=== PATIENT | female | born 1945 | race Caucasian/White ===

== ENCOUNTER 2018-03-11 07:04 | Emergency (ER) | payer OTHER ==
[2018-03-11 07:12] VITALS: BP 105/72; PULSE 95; TEMP 98.1; BMI 28.3
[2018-03-11] MEDS ORDERED: ACETAMINOPHEN 325 MG TABLET (FP) PO ONE ×2 (07:32→07:40)
[2018-03-11] MEDS ORDERED: LIDOCAINE 5% TOPICAL PATCH TP ONE (07:32)
[2018-03-11] MEDS ORDERED: IBUPROFEN 600 MG TABLET (FP) PO ONE ×2 (07:32→07:39)
[2018-03-11] MEDS ORDERED: ACETAMINOPHEN 500 MG TABLET (FP) ONE (07:39)
--- NOTE | 2018-03-11 07:42 | PDOC ---
History of Present Illness - General Chief Complaint: Pain, Acute Stated Complaint: INJURY TO LOWER BACK YESTERDAY Time Seen by Provider: 03/11/18 07:06 History Source: Patient Exam Limitations: No Limitations - History of Present Illness Initial Comments: 03/11/18 07:48 [place] 72 YOF with left hip arthritis awaiting surgery presenting with atraumatic lumbar back pain x 3 days. no falls or trauma. admits to twisting in a certain position when pain started. worse with lying flat and supine and initially getting up from sitting position, improved with ambulation and activity. no weakness or paresthesias. no urinary retention or incontinence. no f/c/ IVDU or back procedures. able to ambulate. went to urgent care clinic over the weekend, given flexeril w/o relief which she has taken three times a day. however, has not tried OTC pain meds or topical patches. 03/11/18 07:56 Past History - Past Medical History Allergies/Adverse Reactions: Allergies Allergy/AdvReac Type Severity Reaction Status Date / Time No Known Allergies Allergy Verified 03/11/18 07:05 Home Medications: Ambulatory Orders Multivitamins [Multivit ([facility] Form[facility])] 1 tab PO DAILY 03/12/16 Lidocaine 5% Patch [Lidoderm Patch -] 1 patch TP DAILY #7 patch 03/11/18 COPD: No Other medical history: DENIES - Suicide/Smoking/Psychosocial Hx Smoking History: Never smoked Have you smoked in the past 12 months: No Information on smoking cessation initiated: No Hx Alcohol Use: Yes (WITH DINNER, WINE) Drug/Substance Use Hx: No Substance Use Type: None Review of Systems - Review of Systems Able to Perform ROS?: Yes Comments:: 03/11/18 07:52 Constitutional: no fevers or chills. HEENT: no headache or dizziness. Abdomen: no abdominal pain : no urinary incontinence. MUSCULOSKELETAL: No joint pain and swelling. +back pain SKIN: no redness or skin changes, no discharge, no rash. Hematologic: no easy bruising/bleeding. NEUROLOGIC: No weakness, numbness or tingling. All other systems reviewed and negative, or as documented in HPI. *Physical Exam - Vital Signs Last Vital Signs Temp Pulse Resp BP Pulse Ox 98.1 F 95 H 16 105/72 98 03/11/18 07:06 03/11/18 07:06 03/11/18 07:06 03/11/18 07:06 03/11/18 07:06 - Physical Exam Comments: 03/11/18 07:51 General: NAD, well appearing Vascular: 2+ DP pulses symmetric and equal. Abdomen: nondistended, nontender. Back: +lower lumbar, right paravertebral tenderness. no stepoffs, FROM Focused MSK/Neuro Exam notable for soft compartments, Cap refill <2 sec. 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 Plantar flexion and dorsiflexion 5/5. FROM. Sensation grossly intact to light touch. No calf tenderness. Neg SLR bilaterally. no left hip/pelvic tenderness, with FROM in all extrem Skin: color normal color, warm and well perfused. 03/11/18 07:55 ED Treatment Course - RADIOLOGY Radiology Studies Ordered: Category Date Time Status SPINE-LUMBAR SACRAL [RAD] Stat Radiology 03/11/18 07:31 Ordered - Medications Given in the ED: ED Medications Discontinued Medications Generic Name Dose Route Start Last Admin Trade Name Fadyq PRN Reason Stop Dose Admin Acetaminophen 975 mg 03/11/18 07:32 03/11/18 07:41 Tylenol - PO 03/11/18 07:33 Not Given ONCE ONE Acetaminophen 1,000 mg 03/11/18 07:40 03/11/18 07:41 Tylenol - PO 03/11/18 07:41 1,000 mg ONCE ONE Administration Ibuprofen 600 mg 03/11/18 07:32 03/11/18 07:41 Motrin - PO 03/11/18 07:33 600 mg ONCE ONE Administration Medical Decision Making - Medical Decision Making 03/11/18 07:54 72 YOF with atraumatic back pain w/o neuro changes, able to walk. vitals wnl, HR in 90s likely 2/2 pain. DDx back pain: back strain, lumbago, spinal stenosis. Muscle spasm. Lumbar radiculopathy. Clinically doubt based on exam and clinical history: cord compression or cauda equina, with low suspicion and no red flag sx such as fevers, IVDU, lumbar procedures, urinary/stool incontinence/retention, neurologic deficits or changes. ED course: given motrin/tylenol for pain, lidoderm patch. XR lumbar sacral region: neg for fx, spondylolisthesis with spinal canal stenosis and facet joint arthropathy present in lumbar region, but no compression fx or deformity. able to ambulate reassurance provided, information and followup with orthopedist and primary doctor for her left hip surgery, no acute sx related to her hip arthritis/since September 2017. has surgery coming up in March 2018. - with pain relief, able to ambulate, ROM improved and no neuro/msk deficits will discharge with topical lidoderm, education on use of NSAID/tylenol As needed for pain, flexeril as adjuvant for muscle spasms. topical lidoderm PRN for pain control as well. f/u orthopedist for management of back pain/hip arthritis. return precautions discussed. pt agrees with impression and plan, questions answered. 03/11/18 11:00 03/11/18 14:01 *DC/Admit/Observation/Transfer Diagnosis at time of Disposition: Back pain, lumbosacral - Discharge Dispostion Disposition: HOME Condition at time of disposition: Stable Decision to Admit order: No - Prescriptions Prescriptions: Lidocaine 5% Patch [Lidoderm Patch -] 1 patch TP DAILY #7 patch - Referrals Referrals: Jani Chávez V [Primary Care Provider] - - Patient Instructions Printed Discharge Instructions: DI for Low Back Pain, DI for Back Spasm, DI for Back Strain or Sprain Additional Instructions: you may take tylenol and or motrin for pain. topical lidoderm patch for your back as well flexeril is a muscle relaxant that you can use additionally follow up with your doctor there appears to be degenerative changes on your X ray but no compression fracture or other traumatic injuries or bony defects. you should continue with physical activity and walking as tolerated, activity is good for your back, range of motion exercises as tolerated. - Post Discharge Activity
[2018-03-11] MEDS ORDERED: LIDOCAINE PATCH REMOVAL MC SCH (22:00)
== END 2018-03-11 11:05 | disposition home or self-care (01) ==
LOC: FER 07:04
DX: M54.5 Low back pain (principal)
CPT/HCPCS: 72100-TC-FY; 99281-25

== ENCOUNTER 2018-04-29 13:39 | Emergency (ER) | payer OTHER ==
[2018-04-29 14:08] VITALS: BP 155/86; PULSE 88; TEMP 97.7; BMI 28.3
--- NOTE | 2018-04-29 14:19 | PDOC ---
History of Present Illness - History of Present Illness Initial Comments: 04/29/18 14:36 The patient is a 73 year old female with past medical history of hypertension and GERD, s/p left hip replacement 6 days ago was brought in by her Orthopedic surgeon for lower extremity swelling that began this morning. Patient reports yesterday she was ambulating the most shes had since her surgery and this morning woke up with swelling of her left lower extremity without any accompanied calf pain, shortness of breath, or palpitations. She denies any associated chest pain. Denies any nausea, vomiting, diarrhea, fevers or chills. <Joy Richter - Last Filed: 04/29/18 14:36> - General History Source: Patient Exam Limitations: No Limitations <Bartolo Canales - Last Filed: 04/29/18 15:41> - General Chief Complaint: Pain Stated Complaint: LEFT LEG SWELLING Time Seen by Provider: 04/29/18 13:50 Past History <Joy Richter - Last Filed: 04/29/18 14:36> - Past Medical History COPD: No - Suicide/Smoking/Psychosocial Hx Smoking History: Never smoked Have you smoked in the past 12 months: No Hx Alcohol Use: Yes (OCCASIONAL) Drug/Substance Use Hx: No Substance Use Type: None <Bartolo Canales - Last Filed: 04/29/18 15:41> - Past Medical History Allergies/Adverse Reactions: Allergies Allergy/AdvReac Type Severity Reaction Status Date / Time bee venom protein (honey bee) Allergy Severe Swelling Verified 04/29/18 13:51 nickel Allergy Unknown Verified 04/29/18 13:51 Home Medications: Ambulatory Orders Acetaminophen 500 mg PO BID 04/29/18 Aspirin [Aspirin EC] 81 mg PO DAILY 04/29/18 Celecoxib [Celebrex] 200 mg PO DAILY 04/29/18 Metoprolol Tartrate [Lopressor -] 25 mg PO DAILY 04/29/18 Pantoprazole Sodium [Protonix] 40 mg PO DAILY 04/29/18 Review of Systems - Review of Systems Able to Perform ROS?: Yes Comments:: 04/29/18 14:36 GENERAL/CONSTITUTIONAL: No fever or chills. No weakness. HEAD, EYES, EARS, NOSE AND THROAT: No change in vision. No ear pain or discharge. No sore throat. CARDIOVASCULAR: No chest pain or shortness of breath. RESPIRATORY: No cough, wheezing, or hemoptysis. GASTROINTESTINAL: No nausea, vomiting, diarrhea or constipation. GENITOURINARY: No dysuria, frequency, or change in urination. MUSCULOSKELETAL: (+) Left lower extremity swelling. No joint or muscle swelling or pain. No neck or back pain. SKIN: No rash NEUROLOGIC: No headache, vertigo, loss of consciousness, or change in strength/ sensation. ENDOCRINE: No increased thirst. No abnormal weight change. HEMATOLOGIC/LYMPHATIC: No anemia, easy bleeding, or history of blood clots. ALLERGIC/IMMUNOLOGIC: No hives or skin allergy. All Other Systems: Reviewed and Negative <Joy Richter - Last Filed: 04/29/18 14:36> *Physical Exam - Vital Signs Last Vital Signs Temp Pulse Resp BP Pulse Ox 97.7 F 88 16 155/86 100 04/29/18 13:40 04/29/18 13:40 04/29/18 13:40 04/29/18 13:40 04/29/18 13:40 - Physical Exam Comments: 04/29/18 14:37 GENERAL: Awake, alert, and fully oriented, in no acute distress HEAD: No signs of trauma NECK: Normal ROM, supple, no lymphadenopathy, JVD, or masses EXTREMITIES: (+) Mild trace pedal edema in LLE, 2 DP pulse, em sign negative , no tibial swelling, bandage on left hip is clean and dry, full ROM of left hip , knee, and ankle.Normal range of motion. No clubbing or cyanosis. No cords, erythema, or tenderness NEUROLOGICAL: Cranial nerves II through XII grossly intact. Normal speech, normal gait SKIN: Warm, Dry, normal turgor, no rashes <Joy Richter - Last Filed: 04/29/18 14:36> - Vital Signs Last Vital Signs Temp Pulse Resp BP Pulse Ox 97.7 F 88 16 155/86 100 04/29/18 13:40 04/29/18 13:40 04/29/18 13:40 04/29/18 13:40 04/29/18 13:40 <Bartolo Canales - Last Filed: 04/29/18 15:41> ED Treatment Course - RADIOLOGY Radiology Studies Ordered: Category Date Time Status DUPLEX VASCUL US-1 LEG [US] Stat Ultrasound 04/29/18 14:09 Ordered <Bartolo Canales - Last Filed: 04/29/18 15:41> Medical Decision Making - Medical Decision Making 04/29/18 14:17 A portion of this note was documented by scribe services under my direction. I have reviewed the details of the note, within reason, and agree with the documentation with the following case summary and management plan written by me. Patient treated in the ED. Nursing notes are reviewed and incorporated into the medical decision-making. Vital signs reviewed. Vital Signs Temp Pulse Resp BP Pulse Ox 97.7 F 88 16 155/86 100 04/29/18 13:40 04/29/18 13:40 04/29/18 13:40 04/29/18 13:40 04/29/18 13:40 73-year-old female patient with no medical problems presents with left lower extremities swelling. The patient is postop day 6 from a left hip replacement. Reported on, located. This was at [facility]. Yesterday, the patient was walking around more than usual. This morning, woke up with some mild increased swelling of the left lower extremities. Denies any pain. No chest pain or short of breath. Patient was sent in by her orthopedist to rule out DVT. We'll obtain a duplex and reassess. 04/29/18 15:40 DVT studies negative. Pt will follow up with her orthopedist. I discussed the physical exam findings, ancillary test results and final diagnoses with the patient. I answered all of the patient's questions. The patient was satisfied with the care received and felt comfortable with the discharge plan and treatment plan. The patient will call their primary care physician within 24 hours to arrange follow-up and will return to the Emergency Department with any new, persistant or worsening symptoms. <Bartolo Canales - Last Filed: 04/29/18 15:41> *DC/Admit/Observation/Transfer - Attestations Scribe Attestion: 04/29/18 14:40 Documentation prepared by Joy Richter, acting as medical billing clerk for Bartolo Canales MD. <Joy Richter - Last Filed: 04/29/18 14:36> - Discharge Dispostion Decision to Admit order: No <Bartolo Canales - Last Filed: 04/29/18 15:41> Diagnosis at time of Disposition: Leg swelling - Discharge Dispostion Disposition: HOME Condition at time of disposition: Good - Patient Instructions Printed Discharge Instructions: DI for Hip Replacement Additional Instructions: Your ultrasound is negative for blood clots. Follow up with your orthopedist.
== END 2018-04-29 15:45 | disposition home or self-care (01) ==
LOC: FER 13:39
DX: M79.89 Other specified soft tissue disorders (principal); I10 Essential (primary) hypertension; K21.9 Gastro-esophageal reflux disease without esophagitis; Z96.642 Presence of left artificial hip joint
CPT/HCPCS: 93971-TC; 99282-25

== ENCOUNTER 2021-02-13 06:29 | Emergency (ER) | payer OTHER ==
[2021-02-13 06:37] VITALS: BP 147/90; PULSE 73; TEMP 97.9; BMI 28.5
[2021-02-13] MEDS ORDERED: ACETAMINOPHEN 500 MG TABLET (FP) PO ONE (07:20)
[2021-02-13] MEDS ORDERED: ACETAMINOPHEN 325 MG TABLET (FP) ONE (07:32)
== END 2021-02-13 07:49 | disposition home or self-care (01) ==
LOC: FER 06:29
DX: R07.0 Pain in throat (principal)
CPT/HCPCS: 87804; 87807; 99283-25; C9803; U0003; U0005